=== PATIENT | female | born 1985 | race Two or more races ===

== ENCOUNTER 2017-03-01 22:10 | Observation (INO) | payer MEDICAID, OTHER ==
[2017-03-01] MEDS ORDERED: cefTRIAXone 1GM/50ML D5W 50 ML IV ONE ×2 (22:50)
[2017-03-01] MEDS ORDERED: LACTATED RINGER'S 1,000 ML IV ONE (22:50)
[2017-03-02 00:48] LABS: Urine Bilirubin Negative (Negative); Urine Blood Negative /uL (Negative); Urine Color Yellow (Yellow); Urine Glucose Normal (Normal); Urine Hyaline Cast FEW /lpf (0 - 2); Urine Ketone Negative (Negative); Urine Mucus FEW (None Seen); Urine RBC 4 /hpf (0 - 4); Urine Squamous Epithelial Cell FEW /hpf (<5); Urine Urobilinogen Normal (Negative)
[2017-03-02 00:49] LABS: Urine Nitrite POSITIVE (Negative)
== END 2017-03-02 00:47 | disposition home or self-care (01) | DRG 955 ==
LOC: LDRP 22:10
PROVIDERS: ADMIT Specialist; ATTEND Specialist
DX: O23.40 Unspecified infection of urinary tract in pregnancy, unspecified trimester (principal); O26.899 Other specified pregnancy related conditions, unspecified trimester; R10.30 Lower abdominal pain, unspecified; Z3A.00 Weeks of gestation of pregnancy not specified
CPT/HCPCS: 59025; 80307; 81001; 96365; G0378; J0696; 96361; 96366

== ENCOUNTER 2017-03-18 08:05 | Observation (INO) | payer MEDICAID | END 2017-03-18 09:50 | disposition home or self-care (01) | DRG 566 | LOC: LDRP 08:05 | PROVIDERS: ADMIT Specialist; ATTEND Specialist | DX: O62.9 Abnormality of forces of labor, unspecified (principal); R11.0 Nausea; Z3A.39 39 weeks gestation of pregnancy | CPT/HCPCS: 59025; 81002; G0378 ==

== ENCOUNTER 2017-03-26 07:25 | Inpatient (IN) | payer MEDICAID ==
[~2017-03-26] VITALS: Ht 165.1 cm; Wt 73.9 kg
[2017-03-26] MEDS ORDERED: LIDOCAINE 1% HCL (LOCAL ANESTH.) INJ 20ML MDV XX ONE (08:45)
[2017-03-26] MEDS ORDERED: BUTORPHANOL TARTRATE 2 MG/1 ML VIAL IV PRN (08:45)
[2017-03-26] MEDS ORDERED: NALOXONE HCL 0.4 MG/ML VIAL IM PRN (08:45)
[2017-03-26 09:07] LABS: Urine RBC None Seen /hpf (0 - 4)
[2017-03-26 09:13] LABS: Basophils # (auto) 0 uL; Basophils % (auto) 0.3 % (0.0-2.0); CONDITION Y; Eosinophils # (auto) 0.1 uL; Eosinophils % (auto) 0.6 % (0.0-7.0); Hematocrit 33.1 % (36.0-46.0); Lymphocytes # (auto) 1.7 uL; Lymphocytes % (auto) 20.2 % (10.0-50.0); Mean Corpuscular Hemoglobin 28.5 pg (28.0-32.0); Mean Corpuscular Hgb Conc. 33.1 g/dL (32.0-36.0); Mean Corpuscular Volume 85.9 fL (80.0-100.0); Mean Platelet Volume 10.2 fL (7.4-10.4); Monocytes # (auto) 0.6 uL; Monocytes % (auto) 7.4 % (0.0-12.0); Neutrophils # (auto) 6.1 uL; Neutrophils % (auto) 71.5 % (37.0-80.0); Platelet Count (auto) 221 10^3/uL (140-450); Red Cell Distribution Width 18.3 % (11.6-16.0); White Blood Cell 8.6 10^3/uL (4.4-10.8)
[2017-03-26 09:21] LABS: Urine Bilirubin Negative (Negative); Urine Blood 2+ /uL (Negative); Urine Color Yellow (Yellow); Urine Glucose Normal (Normal); Urine Ketone Negative (Negative); Urine Nitrite Negative (Negative); Urine Squamous Epithelial Cell FEW /hpf (<5); Urine Urobilinogen Normal (Negative); Urine pH 6.5 (5.0-8.0)
[2017-03-26 09:27] LABS: Albumin 2.9 g/dL (3.4-5.0); BUN/Creatinine Ratio 16.7; Calcium 8.5 mg/dL (8.5-10.1)
[2017-03-26 09:30] LABS: Bilirubin, Total 0.2 mg/dL (0.2-1.0); Total Protein 6.5 g/dL (6.4-8.2)
[2017-03-26 09:33] LABS: INR 0.89 (0.9-1.15); Partial Thromboplastin Time 27.3 sec (22.64-33.71); Prothrombin Time 9.7 sec (9.37-12.3)
[2017-03-26] MEDS: LACTATED RINGER'S 1,000 ML IV SCH ×2 (09:45→18:40)
[2017-03-26] MEDS ORDERED: LACT. RINGERS/OXYTOCIN 20UNITS 1,000 ML IV SCH (10:35)
[2017-03-26] MEDS ORDERED: PHISODERM TOP SOLN 240ML BTL TOP PRN (10:45)
[2017-03-26] MEDS ORDERED: WITCH HAZEL-GLYCERIN PAD TOP PRN (10:45)
[2017-03-26] MEDS ORDERED: METHYLERGONOVINE MALEATE 0.2 MG/ML AMP IM PRN (10:45)
[2017-03-26] MEDS ORDERED: DERMOPLAST 60ML BOTTLE TOP PRN (10:45)
[2017-03-26] MEDS ORDERED: LIDOCAINE 2%HCL (LOCAL ANESTH.) INJ 20ML MDV IJ ONE (10:45)
[2017-03-26] MEDS ORDERED: NALBUPHINE HCL 10 MG/1ml INJECTION IV PRN ×2 (15:00→15:15)
[2017-03-26] MEDS: IBUPROFEN 600 MG TAB PO PRN ×2 (19:13→23:06)
[2017-03-26 23:30] VITALS: BP 106/58
[2017-03-27] MEDS: IBUPROFEN 600 MG TAB PO PRN ×4 (02:11→23:13)
[2017-03-27 04:05] VITALS: BP 108/63
[2017-03-27] MEDS: ACETAMINOPHEN 325 MG TAB PO PRN ×4 (04:21→20:58)
[2017-03-27 07:09] VITALS: BP 94/52
[2017-03-27 11:30] VITALS: BP 99/62
[2017-03-27] MEDS ORDERED: PREN-96 PO (13:42)
[2017-03-27 15:51] VITALS: BP 108/57
[2017-03-27 18:30] VITALS: BP 102/60
[2017-03-27 23:30] VITALS: BP 91/51
[2017-03-28 03:15] VITALS: BP 92/54
[2017-03-28] MEDS: ACETAMINOPHEN 325 MG TAB PO PRN (03:23)
[2017-03-28 07:31] VITALS: BP 99/58
[2017-03-28] MEDS: IBUPROFEN 600 MG TAB PO PRN (07:32)
== END 2017-03-28 10:50 | disposition home or self-care (01) | DRG 560 ==
LOC: LDRP 07:25 → OBSVTOIN 07:25 → LDRP 08:53
PROVIDERS: ADMIT Obstetrics & Gynecology; ATTEND Obstetrics & Gynecology
PROC: 10E0XZZ Delivery of Products of Conception, External Approach (ICD-10-PCS; principal; 2017-03-26)
PROC: 0KQM0ZZ Repair Perineum Muscle, Open Approach (ICD-10-PCS; 2017-03-26)
DX: O70.1 Second degree perineal laceration during delivery (principal); Z37.0 Single live birth; Z3A.40 40 weeks gestation of pregnancy
CPT/HCPCS: 36415; 51702; 59025; 59409; 80053; 81001; 85025; 85610; 85730; 86850; 86900; 86901; 96361; 96365; 96366; 96372; 96374; 96375; G0378; J2590